=== PATIENT | female | born 1945 | race American Indian/Alaskan Native ===

== ENCOUNTER 2018-10-03 14:55 | Outpatient (CLI) | payer MEDICARE ==
--- NOTE | 2018-10-03 16:01 | XRay Report ---
XRAY RIGHT SHOULDER THREE VIEWS: 10/03/18 14:55:00 CLINICAL: Pain. FINDINGS: Moderate osteopenia. Normal glenohumeral alignment. Mild glenohumeral joint arthritis and mild acromioclavicular joint arthritisNo fracture or dislocation. No bone lesion. Normal soft tissues. IMPRESSION: Mild arthritis.
== END 2018-10-03 14:56 | disposition home or self-care (01) ==
LOC: SPVIMAG 14:55
PROVIDERS: ATTEND Internal Medicine
DX: M19.011 Primary osteoarthritis, right shoulder (principal)